=== PATIENT | female | born 2000 | race American Indian/Alaskan Native ===

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

== ENCOUNTER 2023-03-13 09:00 | Inpatient (IN) | payer BC, OTHER, MEDICAID ==
[~2023-03-13 09:00] MED LIST: Carboprost Tromethamine 250 MCG/1 ML Amp IM PRN; Citric Acid/Sodium Citrate Solution 30 ML Cup PO ONE; Lactated Ringers 1,000 ML IV SCH; Methylergonovine 0.2 MG Tab PO PRN; Misoprostol 400 MCG (4 X 100 MCG TAB) RECTAL ONE; Oxytocin 10 Units/1 ML SDV IM PRN; Oxytocin/Normal Saline 30 UNIT/500 ML BAG IV SCH; Sodium Chloride 0.9% 10 ML Syringe FLUSH PRN; Tranexamic Acid 1,000 MG in Sodium Chloride 0.9% 100 ML IV PRN; ceFAZolin 2 GM Vial IVPUSH ONE
[2023-03-13 09:46] LABS: BASOPHILS PERCENT AUTO 0.2 % (0.0-1.0); EOSINOPHILS PERCENT AUTO 0.4 % (1.0-3.0); HEMATOCRIT 35.2 % (37.0-47.0); HEMOGLOBIN 11.6 g/dL (12.0-16.0); MEAN CORPUSCULAR HEMOGLOBIN 29.4 pg (27.0-34.0); MEAN CORPUSCULAR VOLUME 89.3 fL (80-100); NEUTROPHILS PERCENT AUTO 64.4 % (42.2-75.2); PLATELET COUNT,PLT 199 10^3/uL (150-450); RED BLOOD CELL COUNT 3.94 10^6/uL (4.2-5.4)
[2023-03-13] MEDS ORDERED: ceFAZolin 1 GM Vial IVPUSH ONE (09:49)
[2023-03-13] MEDS ORDERED: CEFAZOLIN IVPUSH ONE ×2 (10:00)
[2023-03-13] MEDS ORDERED: Oxytocin/Normal Saline 30 UNIT/500 ML BAG ONE ×2 (10:31→11:42)
[2023-03-13] MEDS: Lactated Ringers 1,000 ML IV SCH ×3 (11:00→19:52)
[2023-03-13] MEDS ORDERED: ceFAZolin 1 GM Vial ONE (11:28)
[2023-03-13] MEDS ORDERED: ceFAZolin 2 GM Vial ONE (11:29)
[2023-03-13] MEDS ORDERED: Methylergonovine 0.2 MG/1 ML Amp IM PRN (12:57)
[2023-03-13] MEDS ORDERED: Acetaminophen 325 MG Tab PO PRN (12:57)
[2023-03-13] MEDS ORDERED: ePHEDrine 50 MG/ML SDV IVPUSH PRN (12:57)
[2023-03-13] MEDS ORDERED: Naloxone 2 MG/2 ML Syringe IVPUSH PRN (12:57)
[2023-03-13] MEDS ORDERED: Ondansetron 4 MG/2 ML SDV IVPUSH PRN (12:57)
[2023-03-13] MEDS ORDERED: Lactated Ringers 1,000 ML IV SCH (13:00)
[2023-03-13] MEDS: Sodium Chloride 0.9% 10 ML Syringe FLUSH SCH ×2 (15:24→22:47)
[2023-03-13] MEDS: Simethicone 80 MG Tab.Chew PO SCH ×3 (15:25→21:56)
[2023-03-13] MEDS: diphenhydrAMINE 50 MG/ML SDV IVPUSH PRN ×2 (15:43→21:56)
[2023-03-13] MEDS: Ketorolac 30 MG/ML SDV IVPUSH SCH (18:15)
[2023-03-13] MEDS: Docusate Sodium 100 MG Cap PO PRN (21:56)
[2023-03-14] MEDS: Ketorolac 30 MG/ML SDV IVPUSH SCH ×2 (00:17→06:05)
[2023-03-14] MEDS: Lactated Ringers 1,000 ML IV SCH (04:11)
[2023-03-14 06:26] LABS: HEMATOCRIT 31.1 % (37.0-47.0); HEMOGLOBIN 10.1 g/dL (12.0-16.0); MEAN CORPUSCULAR HEMOGLOBIN 29.5 pg (27.0-34.0); MEAN CORPUSCULAR HGB CONC 32.5 g/dL (33.0-35.0); MEAN CORPUSCULAR VOLUME 90.9 fL (80-100); RED BLOOD CELL COUNT 3.42 10^6/uL (4.2-5.4); WHITE BLOOD CELL COUNT,WBC 8.1 10^3/uL (5.0-10.0)
[2023-03-14] MEDS: Simethicone 80 MG Tab.Chew PO SCH ×4 (08:20→20:08)
[2023-03-14] MEDS: Prenatal Multivitamin with Calcium/Folic Acid/Iron Tab PO SCH (08:21)
[2023-03-14] MEDS: Acetaminophen/oxyCODONE 325-5 MG Tab PO PRN ×5 (08:22→23:14)
[2023-03-14] MEDS: Docusate Sodium 100 MG Cap PO PRN ×2 (08:22→20:09)
[2023-03-14] MEDS: Sodium Chloride 0.9% 10 ML Syringe FLUSH SCH ×2 (10:33→20:31)
[2023-03-14] MEDS: Ibuprofen 800 MG Tab PO PRN (17:07)
[2023-03-15] MEDS: Acetaminophen/oxyCODONE 325-5 MG Tab PO PRN ×2 (04:15→07:25)
[2023-03-15] MEDS: Ibuprofen 800 MG Tab PO PRN (07:24)
[2023-03-15] MEDS: Simethicone 80 MG Tab.Chew PO SCH (07:24)
[2023-03-15] MEDS: Prenatal Multivitamin with Calcium/Folic Acid/Iron Tab PO SCH (07:24)
[2023-03-15] MEDS: Docusate Sodium 100 MG Cap PO PRN (07:25)
== END 2023-03-15 10:00 | disposition home or self-care (01) | DRG 540 ==
LOC: UNDOADMIN 09:00 → DL.OB 09:00
PROVIDERS: ADMIT Family Medicine; ATTEND Family Medicine
PROC: 10D00Z1 Extraction of Products of Conception, Low, Open Approach (ICD-10-PCS; principal; 2023-03-13 12:00)
DX: O32.1XX0 Maternal care for breech presentation, not applicable or unspecified (principal); Z3A.39 39 weeks gestation of pregnancy; Z37.0 Single live birth; O32.0XX0 Maternal care for unstable lie, not applicable or unspecified; O99.214 Obesity complicating childbirth; E66.01 Morbid (severe) obesity due to excess calories
CPT/HCPCS: 36415; 51702; 59025; 76815; 85025; 85027; 86850; 86900; 86901; A9270-GY; J1200; J1885; J2590; J7120

== ENCOUNTER 2025-01-07 10:02 | Emergency (ER) | payer BC, OTHER ==
[2025-01-07] MEDS: GI Cocktail Oral Solution 30 ML PO ONE (10:30)
[2025-01-07 10:51] LABS: BASOPHILS PERCENT AUTO 0.4 % (0.0-1.0); EOSINOPHILS PERCENT AUTO 0.6 % (1.0-3.0); LYMPHOCYTES PERCENT AUTO 36.4 % (20.5-50.1); MONOCYTES PERCENT AUTO 6.1 % (2-8); NEUTROPHILS PERCENT AUTO 56.5 % (42.2-75.2); PLATELET COUNT,PLT 283 10^3/uL (150-450); RED BLOOD CELL COUNT 4.36 10^6/uL (4.2-5.4); WHITE BLOOD CELL COUNT,WBC 7.3 10^3/uL (5.0-10.0)
[2025-01-07 11:14] LABS: A/G RATIO 1.0; ALANINE AMINOTRANSFERASE,ALT 29 U/L (14-59); ASPARTATE AMNIOTRANSFERASE,AST 18 U/L (15-37); BILIRUBIN TOTAL 0.4 mg/dL (0.2-1.0); BLOOD UREA NITROGEN,BUN 12 mg/dL (7-18); CARBON DIOXIDE,CO2 27 mmol/L (21-32); CHLORIDE,CL 104 mmol/L (98-107); CREATININE 0.73 mg/dL (0.55-1.02); EST CRCL DRUG DOSING (CG) 107.85 mL/min; ESTIMATED GFR 118 mL/min (>=60); GLUCOSE RANDOM 101 mg/dL (70-99); POTASSIUM,K 3.9 mmol/L (3.5-5.1); PROTEIN TOTAL,TP 7.5 g/dL (6.4-8.2); SODIUM,NA 140 mmol/L (136-145)
== END 2025-01-07 11:29 | disposition home or self-care (01) ==
LOC: DL.ED 10:02
DX: K21.9 Gastro-esophageal reflux disease without esophagitis (principal); R51.9 Headache, unspecified; Z79.899 Other long term (current) drug therapy
CPT/HCPCS: 36415; 80053; 84484; 85025; 86140; 93005; 99285; A9270; 93010; 99284